=== PATIENT | female | born 1940 | race Caucasian/White ===

== ENCOUNTER 2021-02-18 15:11 | Outpatient (CLI) | payer MEDICARE, SELFPAY ==
--- NOTE | ~2021-02-18 | MM_ITS ---
EXAMINATION: MM screening [facility] BI w chelly HISTORY: Screening mammogram TECHNIQUE: Craniocaudal and mediolateral oblique 3-D tomosynthesis images were obtained and synthetic 2-D images were generated. CAD analysis was submitted and interpreted. COMPARISON: 08/25/2019, 07/19/2017, 07/11/2015 BREAST PARENCHYMAL COMPOSITION: The breasts are heterogeneously dense, which may obscure small masses . FINDINGS: Scattered benign-appearing calcifications are present. There is no evidence of suspicious m ass, calcification, or architectural distortion to suggest malignancy in either breast. There has bee n no suspicious interval change. IMPRESSION: 1. No mammographic evidence of malignancy. 2. Recommend routine screening mammography in one year. BI-RADS Category 2: Benign finding(s). Reviewed, dictated and finalized at location A.
== END 2021-02-18 15:12 | disposition home or self-care (01) ==
PROVIDERS: PCP Nurse Practitioner Adult Health; Visit Provider Nurse Practitioner Adult Health
DX: Z12.31 Encounter for screening mammogram for malignant neoplasm of breast (principal)
CPT/HCPCS: 77063; 77067

== ENCOUNTER 2022-03-27 08:46 | Outpatient (CLI) | payer MEDICARE, SELFPAY ==
--- NOTE | ~2022-03-27 | DEXA_ITS ---
Bone Density Report Name: JN ROSS Age: 81 Sex: Female Ethnicity: White Date of : 1940 Indication: postmenopausal; screening for osteoporosis; height loss; Referring Provider: SHALINI, CARL Study: Bone densitometry was performed. Exam Date: March 27, 2022 Accession number: [id number] Bone Density: Region BMD T-score Z-score Classification AP Spine(L1, L4) 1.385 3.2 5.9 Normal Femoral Neck (Left) 0.931 0.7 3.1 Normal Total Hip (Left) 1.017 0.6 2.7 Normal Femoral Neck (Right) 0.850 0.0 2.3 Normal Total Hip (Right) 0.964 0.2 2.3 Normal Total Hip Mean 0.991 0.4 2.5 Normal World Health Organization criteria for BMD impression classify patients as: Normal (T-score at or above -1.0), Osteopenia (T-score between -1.0 and -2.5), or Osteoporosis (T-score at or below -2.5). 10-year Fracture Risk: FRAX not reported because: All T-scores for Spine Total, Hip Total, Femoral Neck at or above -1.0 Previous Exams: Region Exam Age BMD T-score BMD Change BMD Change Date g/cm2 vs Baseline vs Previous AP Spine (L1,L4) 03/27/2022 81 1.385 3.2 0.013 (0.9%) 0.007 (0.5%) 08/25/2019 79 1.378 3.1 0.005 (0.4%) 0.005 (0.4%) 07/19/2017 77 1.373 3.1 Total Hip(Left) 03/27/2022 81 1.017 0.6 -0.021 (-2.0%) -0.095 (-8.6%) 08/25/2019 79 1.112 1.4 0.075 (7.2%)* 0.075 (7.2%)* 07/19/2017 77 1.038 0.8 Total Hip(Right) 03/27/2022 81 0.964 0.2 -0.081 (-7.7%) -0.039 (-3.9%) 08/25/2019 79 1.003 0.5 -0.042 (-4.0%) -0.042 (-4.0%) 07/19/2017 77 1.045 0.8 *Denotes significance at 95% confidence level, LSC for AP Spine = 0.022 g/cm2, LSC for Total Hip = 0.027 g/cm2 Clinical Information Provided by Patient: Has used the following medications: Vitamin D Patient maximum height was 63.5 Menopause Age: 46 No regular weight bearing exercise Drinks caffeinated beverages Onset of menses at age 14 Number of children 4 Impression: The patient has normal bone mass. The BMD for the Total Hip(Left) decreased, changing by -8.6% since the last DXA exam. The BMD for the Total Hip(Right) decreased, changing by -3.9% since the last DXA exam. Discussion: LOW RISK OF FRACTURE; BONE DENSITY IS WELL ABOVE THE MINIMUM DESIRABLE LEVEL AND ABOVE AVERAGE FOR AGE AND SEX AT ALL SKELETAL SITES TESTED. This person's bone density is above expected limits for age and sex. This is rarely clinically significant, b
--- NOTE | ~2022-03-27 | MM_ITS ---
EXAMINATION: MM screening [facility] BI w chelly HISTORY: Screening TECHNIQUE: Craniocaudal and mediolateral oblique 3-D tomosynthesis images were obtained and synthetic 2-D images were generated. CAD analysis was submitted and interpreted. COMPARISON: Comparison to multiple prior studies sequentially, with oldest reviewed study dated 06/08. BREAST PARENCHYMAL COMPOSITION: The breasts are heterogeneously dense, which may obscure small masses . FINDINGS: There are benign bilateral breast calcifications. There is no evidence of suspicious mass, calcification, or architectural distortion to suggest malignancy in either breast. There has been no suspicious interval change. IMPRESSION: 1. No mammographic evidence of malignancy. 2. Recommend routine screening mammography in one year. BI-RADS Category 2: Benign finding(s). Reviewed, dictated and finalized at location A.
== END 2022-03-27 08:47 | disposition home or self-care (01) ==
LOC: ANHIMG 08:47
PROVIDERS: PCP Nurse Practitioner Adult Health; Visit Provider Nurse Practitioner Adult Health
DX: Z12.31 Encounter for screening mammogram for malignant neoplasm of breast (principal); Z78.0 Asymptomatic menopausal state
CPT/HCPCS: 77063; 77067; 77080

== ENCOUNTER 2023-05-28 13:10 | Outpatient (CLI) | payer MEDICARE, SELFPAY ==
--- NOTE | ~2023-05-28 | MM_ITS ---
EXAMINATION: MM screening john BI w chelly HISTORY: Screening TECHNIQUE: Craniocaudal and mediolateral oblique 3-D tomosynthesis images were obtained and synthetic 2-D images were generated. CAD analysis was submitted and interpreted. COMPARISON: Comparison to multiple prior studies sequentially, with oldest reviewed study dated 01/2015. BREAST PARENCHYMAL COMPOSITION: The breasts are heterogeneously dense, which may obscure small masses FINDINGS: There is no evidence of suspicious mass, calcification, or architectural distortion to sugg est malignancy in either breast. There has been no suspicious interval change. IMPRESSION: 1. No mammographic evidence of malignancy. 2. Recommend routine screening mammography in one year. BI-RADS Category 1: Negative Reviewed, dictated and finalized at location A.
== END 2023-05-28 13:11 | disposition home or self-care (01) ==
LOC: ANHIMG 13:13
PROVIDERS: PCP Nurse Practitioner Family; Visit Provider Nurse Practitioner Family
DX: Z12.31 Encounter for screening mammogram for malignant neoplasm of breast (principal)
CPT/HCPCS: 77063; 77067

== ENCOUNTER 2024-05-09 13:19 | Outpatient (CLI) | payer MEDICARE, SELFPAY ==
--- NOTE | ~2024-05-09 | DEXA_ITS ---
Bone Density Report Name: JN ROSS Age: 84 Sex: Female Ethnicity: White Date of : 1940 Indication: postmenopausal; screening for osteoporosis; height loss; Referring Provider: HIEN, COLIN Rae Study: Bone densitometry was performed. Exam Date: May 09, 2024 Accession number: [id number] Bone Density: Region BMD T-score Z-score Classification AP Spine(L1, L4) 1.352 2.9 5.6 Normal Femoral Neck (Left) 0.944 0.9 3.3 Normal Total Hip (Left) 1.046 0.9 3.1 Normal Femoral Neck (Right) 0.848 0.0 2.4 Normal Total Hip (Right) 0.932 -0.1 2.1 Normal Total Hip Mean 0.989 0.4 2.6 Normal World Health Organization criteria for BMD impression classify patients as: Normal (T-score at or above -1.0), Osteopenia (T-score between -1.0 and -2.5), or Osteoporosis (T-score at or below -2.5). 10-year Fracture Risk: FRAX not reported because: All T-scores for Spine Total, Hip Total, Femoral Neck at or above -1.0 Previous Exams: Region Exam Age BMD T-score BMD Change BMD Change Date g/cm2 vs Baseline vs Previous AP Spine (L1,L4) 05/09/2024 84 1.352 2.9 -0.021 (-1.5%) -0.034 (-2.4%) 03/27/2022 81 1.385 3.2 0.013 (0.9%) 0.007 (0.5%) 08/25/2019 79 1.378 3.1 0.005 (0.4%) 0.005 (0.4%) 07/19/2017 77 1.373 3.1 Total Hip(Left) 05/09/2024 84 1.046 0.9 0.009 (0.8%) 0.029 (2.9%)* 03/27/2022 81 1.017 0.6 -0.021 (-2.0%) -0.095 (-8.6%) 08/25/2019 79 1.112 1.4 0.075 (7.2%)* 0.075 (7.2%)* 07/19/2017 77 1.038 0.8 Total Hip(Right) 05/09/2024 84 0.932 -0.1 -0.113 (-10.8% -0.032 (-3.3%) 03/27/2022 81 0.964 0.2 -0.081 (-7.7%) -0.039 (-3.9%) 08/25/2019 79 1.003 0.5 -0.042 (-4.0%) -0.042 (-4.0%) 07/19/2017 77 1.045 0.8 *Denotes significance at 95% confidence level, LSC for AP Spine = 0.022 g/cm2, LSC for Total Hip = 0.027 g/cm2 Clinical Information Provided by Patient: Has used the following medications: Vitamin D Patient maximum height was 63.5 Menopause Age: 46 Onset of menses at age 14 Number of children 4 Impression: The patient has normal bone mass. The BMD for the AP Spine (L1,L4) decreased, changing by -2.4% since the last DXA exam. The BMD for the Total Hip(Right) decreased, changing by -3.3% since the last DXA exam. Discussion: LOW RISK OF FRACTURE; BONE DENSITY IS WELL ABOVE THE MINIMUM DESIRABLE LEVEL AND ABOVE AVERAGE FOR AGE AND SEX AT AL
== END 2024-05-09 13:20 | disposition home or self-care (01) ==
PROVIDERS: PCP Family Medicine; Visit Provider Family Medicine
DX: Z78.0 Asymptomatic menopausal state (principal); Z13.820 Encounter for screening for osteoporosis
CPT/HCPCS: 77080

== ENCOUNTER 2024-07-12 14:50 | Outpatient (CLI) | payer MEDICARE, SELFPAY ==
--- NOTE | ~2024-07-12 | MM_ITS ---
EXAMINATION: MM screening john BI w chelly HISTORY: Screening TECHNIQUE: Craniocaudal and mediolateral oblique 3-D tomosynthesis images were obtained and synthetic 2-D images were generated. CAD analysis was submitted and interpreted. COMPARISON: Comparison to multiple prior studies sequentially, with oldest reviewed study dated 01/2025. BREAST PARENCHYMAL COMPOSITION: Dense: The breasts are heterogeneously dense, which may obscure small masses FINDINGS: There is no evidence of suspicious mass, calcification, or architectural distortion to sugg est malignancy in either breast. There has been no suspicious interval change. IMPRESSION: 1. No mammographic evidence of malignancy. 2. Recommend routine screening mammography in one year. BI-RADS Category 1: Negative Reviewed, dictated and finalized at location B. DLE COOK
== END 2024-07-12 14:51 | disposition home or self-care (01) ==
LOC: ANHIMG 14:52
PROVIDERS: PCP Family Medicine; Visit Provider Family Medicine
DX: Z12.31 Encounter for screening mammogram for malignant neoplasm of breast (principal)
CPT/HCPCS: 77063; 77067

== ENCOUNTER 2025-07-13 09:58 | Outpatient (CLI) | payer MEDICARE, SELFPAY ==
--- NOTE | ~2025-07-13 | MM_ITS ---
EXAMINATION: MM screening john BI w chelly HISTORY: Screening TECHNIQUE: Craniocaudal and mediolateral oblique 3-D tomosynthesis images were obtained and synthetic 2-D images were generated. CAD analysis was submitted and interpreted. COMPARISON: Comparison to multiple prior studies sequentially, with oldest reviewed study dated 07/19/2017. BREAST PARENCHYMAL COMPOSITION: Dense: The breasts are heterogeneously dense, which may obscure small masses FINDINGS: There is no evidence of suspicious mass, calcification, or architectural distortion to suggest malignancy in either breast. There has been no suspicious interval change. IMPRESSION: 1. No mammographic evidence of malignancy. 2. Recommend routine screening mammography in one year. BI-RADS Category 1: Negative Reviewed, dictated and finalized at location O. TICAL NURSE
--- OUTSIDE RECORDS SUMMARY | 2025-07-13 10:45 | XMS_ITS | Clinical Summary ---
Author Organization [facility] Address [address] [place] [address] Care Team Providers Care Floating Derrick Operator Name Role Phone Terell Marsh MD Unavailable Source Comments [facility],non[facility] Affiliates and Associated Physician Practices is amultiple site organization consisting of ambulatory clinics and hospital sitesin [place], [place], [place] and [place]. This disclosure is being madepursuant to the Care Everywhere program and may not contain all information available regarding this patient. Last updated 18.[facility] MaxCDN Allergies Active Allergy Reactions Criticality Noted Date Comments Alendronic Acid Unknown Cortisone 10/18/2012 HTN FOLLOWING CORTISONE INJECTION Alendronate Sodium Swelling 10/18/2012 Medications * Be aware that medications may not be up to date on this document. Alwaysverify current medications with the patient. triamterene-hyd rochlorothiazid e (MAXZIDE-25) 37.5-25 MG tablet Take 1 Tab by mouth 2 times daily Active lisinopril (PRINIVIL; ZESTRIL) 40 MG tablet Take 40 mg by mouth once daily. Active DHA-EPA-Vit Z6-H58-Xvqzp Acid (CARDIOVID PLUS) CAPS Take by mouth once daily 2 in am/ 1 in pm Active simvastatin (ZOCOR) 40 MG tablet Take 40 mg by mouth at bedtime 6 Active Vitamin D3 (CHOLECALCIFERO L) 2000 UNITS capsule Take 2,000 Units by mouth once daily Active cloNIDine (CATAPRES) 0.2 MG tablet Take 0.2 mg by mouth 2 times daily Active [place]-3 Fatty Acids (FISH OIL) 645 MG Take by mouth 2 times daily Active amoxicillin (AMOXIL) 500 MG tablet Take 4 tabs one hour before any dental treatment 4 tablet 4 0 Active Active Problems Problem Noted Date Diagnosed Date Primary osteoarthritis of right knee 07/26/2018 S/P cervical discectomy 09/30/2016 Status post total left knee replacement 06/23/20 16 Post-operative nausea and vomiting 11/07/2012 Immunizations Immunization Administration Dates Next Due INFLUENZA VACCINE, QUADR. (F LUZONE; FLULAVAL; FLUARIX; AFLURIA QUADRIVALENT; 6MO+), 0.5 ML (IIV4) 05/14/2016 Family History Medical History Relation Name Comments Alzheimer's Disease Father Heart Failure Mother Relation Name Status Comments Father Mother Social History Tobacco Use Types Packs/Day Years Used Date Smoking Tobacco: Never Smokeless Tobacco: Never Alcohol Use Standard Drinks/Week Comments Yes 0 (1 standard drink = 0.6 oz pur e alcohol) RARELY Comments No Sex and Gender Information Value Date Recorded Sex Assigned at Not on file Legal Sex Female 10:48 AM SECURITY GUARD DISPATCHER Gender Identity Not on file Sexual Orientation Not on file Occupation Industry Job Start Date Job End Date RETIRED Not on file Not on file Not on file Last Filed Vital Signs Vital Sign Reading Time Taken Comments Blood Pressure 156/46 11/04/2018 9:13 AM SECURITY GUARD DISPATCHER Pulse 61 11/04/2018 9:13 AM SECURITY GUARD DISPATCHER Temperature 36.3 C (97.3 F) 11/04/2018 9:09 AM SECURITY GUARD DISPATCHER Respiratory Rate 18 11/04/2018 9:09 AM SECURITY GUARD DISPATCHER Oxygen Saturation 94% 11/04/2018 9:13 AM SECURITY GUARD DISPATCHER Inhaled Oxygen Concentration 21% 05/13/2016 4 :36 PM CDT Weight 97.5 kg (215 lb) 12/13/2018 11:25 AM CDT Height 160 cm (5' 3) 12/13/2018 11:25 AM CDT Body Mass Index 38.09 12/13/2018 11:25 AM CDT Plan of Treatment Upcoming Encounters Date Type Department Care Team (Late st Contact Info) Description 04/08/2026 1:30 PM CDT Office Visit [facility] - Otolaryngology [address] [place] [address] Kelley Ware, RIDING COACH-3D MODELER [address] [place] [address] 04/08/2026 2:00 PM CDT Testing Visit [facility] - Otolaryngology [address] [place] [address] Barbara Ambrocio, [facility] [address] [place] [address] Health Maintenance Due Date Last Done Comments BONE DENSITY TESTING 1940 MEDICARE AWV 12 MONTHS 1940 DTAP/TDAP/TD VACCINES (1 - Tdap) 1960 PNEUMOCOCCAL VACCINE 50+ (1 of 1 - PCV) 1991 ZOSTER VACCINE (1 of 2) 1991 Respiratory Syncytial Virus (RSV) Vaccine Pt: or over 60 yrs (1 - 1-dose 75+ series) 2016 DEPRESSION SCREENING 09/06/2024 COVID-19 VACCINE (1 - 2023-2 5 season) 2025 INFLUENZA VACCINE (#1) 2025 05/14/2016 HEPATITIS B VACCINE Aged Out No longe r eligible based on patient's age to complete this topic HIB VACCINE Aged Out No longer eligi ble based on patient's age to complete this topic HPV VACCINE Aged Out No longer eligi ble based on patient's age to complete this topic MENINGOCOCCAL (Group B) VACC INE SHARED DECISION-MAKING Aged Out No longer eligibl e based on patient's age to complete this topic MENINGOCOCCAL GROUPS A/C/Y/W VACCINE Aged Out No longer eligible b ased on patient's age to complete this topic Medical Devices Implanted Type Area Insurance Examining Clerk Device Identifier Shelf Expiration Date Model / Serial / Lot Avinash Bone [place] Hv Implanted:Qty: 1 on 05/13/2016 by Terell Marsh MD at [facility] Left: Knee [employer] 08/05/2017 [id number] / / [id number] Butn Pat Arcom Wire Polyeth Xsm 28 X 8 Implanted:Qty: 1 on 05/13/2016 by Terell Marsh MD at [facility] Left: Knee [employer] 03/18/2021 [id number] / / [id number] Tibial I Beam Fix Bar 71mm Implanted:Qty: 1 on 05/13/2016 by Terell Marsh MD at [facility] Left: Knee [employer] 01/08/2026 [id number] / / [id number] Ins Kn Vangurd Fem Cocr L-Intlok 65.0mm Implanted:Qty: 1 on 05/13/2016 by Terell Marsh MD at [facility] Left: Knee [employer] 03/09/2026 [id number] / / [id number] Brdg Tib Ale Stbl 12mm X 71mm Implanted:Qty: 1 on 05/13/2016 by Terell Marsh MD at [facility] Left: Knee [employer] 02/27/2021 [id number] / / [id number] 14 Mm Fixed Screws Implanted:Qty: 8 on 09/30/2016 by Malik Nichols MD at [facility] [employer] Inc [id number] / / Description:from sterile imp lant tray Graft Bone Alloquent Carlyle Cnc Algrf - [id number] Implanted:Qty: 1 on 09/30/2016 by Malik Nichols MD at [facility] 02/18/2019 30-5007 / [id number] / [id number] Graft Bone Alloquent-S Carlyle Algrf Strct - [id number] Implanted:Qty: 1 on 09/30/2016 by Malik Nichols MD at [facility] 02/19/2019-500 / [id number] / [id number] Graft Bone Alloquent-S Carlyle Algrf Strct - [id number] Implanted:Qty: 1 on 09/30/2016 by Malik Nichols MD at [facility] 02/19/2019 30-5008 / [id number] / [id number] 51 Mm Luxe Acp Plate Implanted:Qty: 1 on 09/30/2016 by Malik Nichols MD at [facility] Spine Cervical [employer] Inc [id number] / / Description:from sterile imp lant tray Cmnt Bone Cblt 40gm Hvisc Strl Implanted:Qty: 1 on 11/02/2018 by Terell Marsh MD at [facility] Right: Knee [employer] 01/20/2020 [id number] 0 / / [id number] Cmpnt Ptlr 28mm 1 Pg Wire Ascnt Arcm Kn Implanted:Qty: 1 on 11/02/2018 by Terell Marsh MD at [facility] Right: Knee Sean [employer] 09/27/2022 [id number] / / [id number] Cmpnt Fem Kn Rt Cr Cmnt Prm Vngrd Intlk Implanted:Qty: 1 on 11/02/2018 by Terell Marsh MD at [facility] Right: Knee [employer] 04/05/2028 [id number] / / [id number] Tray Tib 75mm Kn Cocr I Beam Implanted:Qty: 1 on 11/02/2018 by Terell Marsh MD at [facility] Right: Knee [employer] 08/17/2028 [id number] / / [id number] Brng [id number] Vngrd Arcm Kn Ant Stab Implanted:Qty: 1 on 11/02/2018 by Terell Marsh MD at [facility] Right: Knee [employer] 09/22/2023 [id number] / / [id number] Additional Health Concerns Infection Onset Date Last Indicated MRSA Hx 11/03/2018 11/03/2018 Insurance MEDICARE MEDICARE SUPPLEMENT PAYOR GENERIC AETNA MEDICARE Advance Directives * Full Code (Latest Code Status on File) Date Activated Date Inactivated Comments 11/02/2018 3:54 PM 11/04/2018 2:11 PM * Full Code Date Activated Date Inactivated Comments 09/30/2016 5:35 PM 10/01/2016 12:03 PM * Full Code Date Activated Date Inactivated Comments 05/13/2016 12:44 PM 05/16/2016 1:59 PM * FULL RESUSCITATION Date Activated Date Inactivated Comments 11/07/2012 3:08 PM 11/08/2012 2:17 PM Care Teams Floating Derrick Operator Relationship Specialty [place] [address] [place] [id number] Orthopedic Surgery 01/14/16
--- OUTSIDE RECORDS SUMMARY | 2025-07-13 10:45 | XMS_ITS | Patient Health Record ---
Author Organization [facility] Address [address] [place] [address] Support Name Relationship Address Phone Lizett Osullivan Guarantor Unknown [phone] Reason For Referral No Information Plan Of Treatment No Information Insurance Providers Payer Name Payer Address Payer Phone Subscriber Number Group Number Insured Name Patient Relationship to Insured Coverage Start Date Coverage End Date [place] [address] [address] [place] [address] [id number] Lizett Osullivan Self - patient is the insured 8 [place] [employer] [place] [address] - [place] [address] [id number] PLAN G Lizett Osullivan Self - patient is the insured 3
--- OUTSIDE RECORDS SUMMARY | 2025-07-13 10:45 | XMS_ITS | Encounter Summary ---
Author Organization [facility] Address [address] [place] [address] Care Team Providers Care Polymer Chemist Name Role Phone Terell Marsh MD Unavailable Encounter Details Date Type Department Care Team (Late st Contact Info) Description 03/23/2019 Lab Requisition [facility] [address] [place] [address] Mal[place] [address] Social History Tobacco Use Types Packs/Day Years Used Date Smoking Tobacco: Never Smokeless Tobacco: Never Alcohol Use Standard Drinks/Week Comments Yes 0 (1 standard drink = 0.6 oz pur e alcohol) RARELY Comments No Sex and Gender Information Value Date Recorded Sex Assigned at Not on file Legal Sex Female 10:48 AM IVF EMBRYOLOGIST Gender Identity Not on file Sexual Orientation Not on file Occupation Industry Job Start Date Job End Date RETIRED Not on file Not on file Not on file documented as of this encounter Functional Status * Is person deaf or have serious hearing difficulty? Answer Date of Assessment Author No 11/02/2018 5:45 PM Connor Segovia RN * Is person blind or have serious difficulty seeing? Answer Date of Assessment Author No 11/02/2018 5:45 PM Connor Segovia RN * Does person have serious difficulty walking/climbing stairs? Answer Date of Assessment Author No 11/02/2018 5:45 PM Connor Segovia RN * Does person have difficulty dressing/bathing? Answer Date of Assessment Author No 11/02/2018 5:45 PM Connor Segovia RN * Does person have difficulty doing errands alone? Answer Date of Assessment Author Yes 11/02/2018 5:45 PM Connor Segovia RN documented as of this encounter Mental Status * Does person have difficulty concentrating/remembering/making decisions? Answer Entry Date Author No 11/02/2018 5:45 PM Connor Segovia RN documented in this encounter Plan of Treatment Upcoming Encounters Date Type Department Care Team (Late st Contact Info) Description 04/08/2026 1:30 PM CDT Office Visit [facility] Physician [facility] - Otolaryngology [address] [place] [id number] Chaz Kelley Lydia, GLIDING PILOT [facility] [address] [address] 04/08/2026 2:00 PM CDT Testing Visit [facility] - Otolaryngology [address] [place] [address] Barbara Ambrocio Au[place] [address] [address] documented as of this encounter Procedures Procedure Name Priority Date/Time Associated Diagnosis Comments DERMATOPATHOLOGY Routine 03/22/2019 12:0 0 AM CDT documented in this encounter Results * DERMATOPATHOLOGY (03/22/2019 12:00 AM CDT) Case Report Dermatopathology Report Case: [id number] Authorizing Provider: Malik Mark MD Collected: 03/22/2019 12:00 AM Pathologist: Osvaldo Redman MD Received: 03/23/2019 11:40 AM Specimen: Skin, left proximal forearm at AC fossa laterally 9 4:33 PM CDT DERMATOPATHOLOGY LABORATORY Final Diagnosis Specimen A. 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 4:33 PM CDT DERMATOPATHOLOGY LABORATORY Gross Description Specimen A: Received is one formalin filled container labeled with the patient's name and designated left proximal forearm at AC fossa laterally. The specimen consists of a shave biopsy measuring [id number]. Jar 0. 4:33 PM CDT DERMATOPATHOLOGY LABORATORY Microscopic Description Specimen A. SKIN, left proximal forearm at AC fossa laterally: There is a proliferation of melanocytes distributed in an irregular pattern, singly and in nests, at all levels of the epidermis. MART-1/Melan-A highlights the pagetoid spread. This lesion approximates the margin of the specimen. 4:33 PM CDT DERMATOPATHOLOGY LABORATORY Disclaimer An external and internal positive and negative controls are appropriate for the histochemical, immunohistochemical and immunofluorescence stain(s) in this case (if any), except where stated explicitly. The performance characteristics of the stain(s) cited in this report were developed and its performance characteristic determined by the Dermatopathology Laboratory at [facility], directed by Dr. Ethel Redman. These tests need not be, and therefore are not, approved by the [place] Food and Drug Administration. The tests are used for clinical purposes. Billing Codes Specimen Charges Stain Charges 73825 1 72173 1 4:33 PM CDT DERMATOPATHOLOGY LABORATORY Embedded Images 4:33 PM CDT DERMATOPATHOLOGY LABORATORY Pathology/Cytolog y TISSUE SPECIMEN FROM SKIN / Unknown 03/22/2019 03/23/2019 11:40 AM CDT Malik Mark MD LAB - PATHOLOGY/CYTOLOGY ORD ERABLES Final Result DERMATOPATHOLOGY LABORATORY [facility] - Department of Dermatology [address] [place] [address], 5th Floor Lab [address] [phone] documented in this encounter Visit Diagnoses Not on filedocumented in this encounter Additional Health Concerns Infection Onset Date Last Indicated Resolved Time MRSA Hx 11/03/2018 11/03/2018 documented as of this encounter Care Teams Polymer Chemist Relationship Specialty [place] [address] [place] [address] Orthopedic Surgery 01/14/16 documented as of this encounter
--- OUTSIDE RECORDS SUMMARY | 2025-07-13 10:45 | XMS_ITS | Data Portability ---
Author Organization [facility] [employer], Main Office Address [address] [place] [address] Assessment Encounter Date Assessment Date Assessment LastModified by Organization Details LastModified Time 03/02/2023 03/02/2023 Cscope- 2013- no longer doing 2/2 age WWE- no longer doing 2/2 age Mammogram- 03/2022 DEXA- 03/2022- normal Call office if worse, ER if life-threatening illness RTC in 4 months She voices understanding of plan and agrees [email or web address] Not available 03/02/2023 12:02:58 06/29/2023 06/29/2023 Cscope- 2013- no longer doing 2/2 age WWE- no longer doing 2/2 age Mammogram- 05/2023 DEXA- 03/2022- normal Call office if worse, ER if life-threatening illness RTC in 4 months She voices understanding of plan and agrees [email or web address] Not available 06/29/2023 10:03:14 Plan of Treatment Reminders Order Date Submit Date Provider Last Modified By Organization Details Last Modified Time Details Appointments None recorded. Lab None recorded. Referral None recorded. Procedures None recorded. Surgeries None recorded. Imaging MAMMO, screening, bilateral 2022 023 [email or web address] [facility], [address], [place] [address], [place], [address], 14:25:50 Medication Orders neomycin 3.5 mg/g-polym yxin B 10,000 unit/g-dex ameth 0.1 % eye oint 2022 023 [facility] #[id number], [address], [place], [address], 3 10:03:24 neomycin 3.5 mg/g-polym yxin B 10,000 unit/g-dex ameth 0.1 % eye oint 2022 023 [facility] #[id number], [address], [place], [address], 3 12:11:36 Patient TargetsNo targets recorded. Patient InstructionsNo instructions recorded. Reason for Referral None Reported. Results Created Date Observation Date Name Description Value Unit Range Abnormal Flag Note LastModifiedBy Organization Detail LastModifiedTime 07/23/2007/23/2022 NT-KS O BNP ntbnp 95.7 pg/mL 0-450 Not Available [facility] (Lab) [address] [place], [address], 07/23/2022 13:42:10 07/23/20 22 07/23/2022 MICRO ALBUM N RNDM W/CRE AT RATIO ur creat 49.59 mg/dL REFER ENCE RANGE NOT ESTAB LISHE D FOR RANDO M URINE CREAT ININE Not Available [facility] (Lab) [address] [place], [address], 07/23/2022 13:36:21 07/23/20 22 07/23/2022 MICRO ALBUM N RNDM W/CRE AT RATIO microalbumin , urine 13.7 mg/L 0.0-16 .6 Not Available [facility] (Lab) [address] [place], [address], 07/23/2022 13:36:21 07/23/20 22 07/23/2022 MICRO ALBUM N RNDM W/CRE AT RATIO microalbumin /creatinine ratio 28 mcg/m g 0-29 THE AMERI CAN DIABE NIMO ASSOC IATIO N DEFIN ES ABNOR MALIT IES IN ALBUM IN EXCRE TION FOLLO WS: CATEG ORY RESUL T (MCG/ MG CREAT ININE ) CASSIE L <30 MICRO ALBUM INURI A 30-29 9 CLINI NATHALIA ALBUM INURI A > OR = 300 THE ADA RECOM MENDS THAT 2 OF 2 SPECI MENS COLLE CTED WITHI N A 3- TO 6-MON TH PERIO D BE ABNOR MAL BEFOR E CONSI JOELLE G A PATIE NT TO HAVE CROSS ED ONE OF THESE DIAGN OSTIC THRES HOLDS . REFER ENCE: DIABE NIMO CARE, VOL. 26: [id number] 96, 2002 Not Available [facility] (Lab) [address] [place], [address], 07/23/2022 13:36:21 07/23/20 22 07/23/2022 COMPR EHENS BLUE METAB OLIC PANEL anion gap 13.7 mmol/ L 14-22 low Not Available [facility] (Lab) [address] [place], [address], 07/23/2022 14:58:48 07/23/20 22 07/23/2022 COMPR EHENS BLUE METAB OLIC PANEL sodium 142 mmol/ L 137-14 5 Not Available [facility] (Lab) [address] [place], [address], 07/23/2022 14:58:48 07/23/20 22 07/23/2022 COMPR EHENS BLUE METAB OLIC PANEL potassium 4.7 mmol/ L 3.5-5. 1 Not Available [facility] (Lab) [address] [place], [address], 07/23/2022 14:58:48 07/23/20 22 07/23/2022 COMPR EHENS BLUE METAB OLIC PANEL chloride 105 mmol/ L 98-107 Not Available [facility] (Lab) [address] [place], [address], 07/23/2022 14:58:48 07/23/20 22 07/23/2022 COMPR EHENS BLUE METAB OLIC PANEL carbon dioxide 28 mmol/ L 22-30 Not Available [facility] (Lab) [address] [place], [address], 07/23/2022 14:58:48 07/23/20 22 07/23/2022 COMPR EHENS BLUE METAB OLIC PANEL glucose 98 mg/dL 70-99 Not Available [facility] (Lab) [address] [place], [address], 07/23/2022 14:58:48 07/23/20 22 07/23/2022 COMPR EHENS BLUE METAB OLIC PANEL BUN 33 mg/dL 8-19 high Not Available [facility] (Lab) [address] [place], [address], 07/23/2022 14:58:48 07/23/20 22 07/23/2022 COMPR EHENS BLUE METAB OLIC PANEL creatinine 1.32 mg/dL 0.66-1 .25 high Not Available [facility] (Lab) [address] [place], [address], 07/23/2022 14:58:48 07/23/20 22 07/23/2022 COMPR EHENS BLUE METAB OLIC PANEL aspartate aminotransfe rase 30 U/L 15-37 Not Available [facility] (Lab) [address] [place], [address], 07/23/2022 14:58:48 07/23/20 22 07/23/2022 COMPR EHENS BLUE METAB OLIC PANEL GFR 39 Refer ence Range : [place] ge GFR Healt hy Adult : >60 mL/mi n/1.7 3 m2 Chron ic Kidne y Disea se: 15-60 mL/mi n/1.7 3 m2 Kidne y Failu re: <15/m L/min /1.73 m2 www.n iddk. nih.g ov The MDRD study equat ion has not been valid ated in child javier <18 years of age; pregn ant women ; the elder ly >85 years of age; or in some racia l or ethni c subgr oups, such as Hispa nics. Outsi de the valid ated benny eters , estim ated GFR is less accur ate, requi ring clini nathalia judgm ent on a case- by-ca se basis . Clini nathalia inter preta tion for other races and ages must be made by the clini shayy. The MDRD study equat ion has not been valid ated for the evalu ation of serum creat inine relat ed to nutri alejandra l statu s or medic ation usage . For perso ns <18 years of age, a pedia tric GFR calcu lator is avail able on the [facility] websi te: https ://abdi w.kid meseret.o rg/pr ofess ional s/kdo qi/gf r_cal culat or Not Available [facility] (Lab) [address] [place], [address], 07/23/2022 14:58:48 07/23/20 22 07/23/2022 COMPR EHENS BLUE METAB OLIC PANEL alkaline phosphatase 71 U/L 38-126 Not Available [facility] (Lab) [address] [place], [address], 07/23/2022 14:58:48 07/23/20 22 07/23/2022 COMPR EHENS BLUE METAB OLIC PANEL alanine aminotransfe rase 23 U/L 0-35 Not Available [facility] (Lab) [address] [place], [address], 07/23/2022 14:58:48 07/23/20 22 07/23/2022 COMPR EHENS BLUE METAB OLIC PANEL bilirubin, total 1.20 mg/dL 0.20-1 .30 Not Available [facility] (Lab) [address] [place], [address], 07/23/2022 14:58:48 07/23/20 22 07/23/2022 COMPR EHENS BLUE METAB OLIC PANEL calcium 10.4 mg/dL 8.4-10 .2 high Not Available [facility] (Lab) [address] [place], [address], 07/23/2022 14:58:48 07/23/20 22 07/23/2022 COMPR EHENS BLUE METAB OLIC PANEL total protein 7.2 g/dL 6.3-8. 2 Not Available [facility] (Lab) [address] [place], [address], 07/23/2022 14:58:48 07/23/20 22 07/23/2022 COMPR EHENS BLUE METAB OLIC PANEL albumin 4.4 g/dL 3.0-4. 4 Not Available [facility] (Lab) [address] [place], [address], 07/23/2022 14:58:48 07/23/20 22 07/23/2022 COMPR EHENS BLUE METAB OLIC PANEL globulin 2.8 g/dL 2.6-4. 2 Not Available [facility] (Lab) [address] [place], [address], 07/23/2022 14:58:48 07/23/20 22 07/23/2022 COMPR EHENS BLUE METAB OLIC PANEL A/G ratio 1.6 ratio 1.0-2. 0 Not Available [facility] (Lab) [address] [place], [address], 07/23/2022 14:58:48 07/23/20 22 07/24/2022 VITAM IN D 25-HY DROXY [id number] 48.5 NG/mL 30-100 Vitam in D Statu s: Defic ient: <20 ng/mL Insuf ficie nt: 20-29 ng/mL Suffi cient : 30-10 0 ng/mL Not Available [facility] (Lab) [address] [place], [address], 07/24/2022 13:32:44 07/23/20 22 07/23/2022 LIPID PANEL cholesterol 182 mg/dL 140-19 9 [facility] PARRIS NSUS RECOM MENDA TION FOR KELVIN STERO L: ADULT CHILD LOW RISK: <200 <170 BORDE RLINE : <200- 239 ----- HIGH RISK: >240 >200 Not Available [facility] (Lab) [address] [place], [address], 07/23/2022 13:37:03 07/23/20 22 07/23/2022 LIPID PANEL triglyceride s 81 mg/dL 0-150 NIH PARRIS NSUS REPOR T RECOM MENDA TION FOR TRIGL YCERI JYOTSNA: ADULT CHILD LOW RISK: <150 ----- BODER LINE: 150-1 99 ----- HIGH RISK: >200 ----- Not Available [facility] (Lab) [address] [place], [address], 07/23/2022 13:37:03 07/23/20 22 07/23/2022 LIPID PANEL HDL cholesterol 57 mg/dL 40- Not Available [facility] (Lab) [address] [place], [address], 07/23/2022 13:37:03 07/23/20 22 07/23/2022 LIPID PANEL LDL cholesterol, calculated 109 mg/dL 0-130 NIH PARRIS NSUS REPOR T RECOM MENDA TIONS FOR LDL: ADULT CHILD LOW RISK <130 <110 (OPTI MAL LDL) <100 ----- BORDE RLINE : 130-1 59 ----- HIGH RISK: >160 >130 A TRIGL YCERI DE RESUL T >400 INVAL IDATE S THE CALCU LATIO N FOR LDL FRACT IONAT ION - THE LDL RESUL T WILL NOT BE REPOR GERDA. Not Available [facility] (Lab) [address] [place], [address], 07/23/2022 13:37:03 02/03/20 23 02/02/2023 CBC/C OMPLE TE BLD COUNT W/DIF F white blood cells 6.5 x10'3 /uL 4.2-10 .8 Not Available [facility] (Lab) [address] [place], [address], 02/02/2023 10:38:23 02/03/20 23 02/02/2023 CBC/C OMPLE TE BLD COUNT W/DIF F red blood cells 4.57 x10'6 /uL 3.80-5 .20 Not Available [facility] (Lab) [address] [place], [address], 02/02/2023 10:38:23 02/03/20 23 02/02/2023 CBC/C OMPLE TE BLD COUNT W/DIF F hemoglobin 14.1 g/dL 12.0-1 5.6 Not Available [facility] (Lab) [address] [place], [address], 02/02/2023 10:38:23 02/03/20 23 02/02/2023 CBC/C OMPLE TE BLD COUNT W/DIF F hematocrit 42.5 % 35.7-4 5.7 Not Available [facility] (Lab) [address] [place], [address], 02/02/2023 10:38:23 02/03/2002/02/2023 CBC/C OMPLE TE BLD COUNT W/DIF F mean red cell volume 93.0 fL 82.0-9 9.0 Not Available [facility] (Lab) [address] [place], [address], 02/02/2023 10:38:23 02/03/2002/02/2023 CBC/C OMPLE TE BLD COUNT W/DIF F mean red cell hemoglobin 30.9 pg 27.0-3 3.0 Not Available [facility] (Lab) [address] [place], [address], 02/02/2023 10:38:23 02/03/20 23 02/02/2023 CBC/C OMPLE TE BLD COUNT W/DIF F mean RBC HGB concentratio n 33.2 g/dL 31.0-3 6.0 Not Available [facility] (Lab) [address] [place], [address], 02/02/2023 10:38:23 02/03/20 23 02/02/2023 CBC/C OMPLE TE BLD COUNT W/DIF F red cell distribution width 11.9 % 11.8-1 5.5 Not Available [facility] (Lab) [address] [place], [address], 02/02/2023 10:38:23 02/03/20 23 02/02/2023 CBC/C OMPLE TE BLD COUNT W/DIF F platelets 256 x10'3 /uL 150-40 0 Not Available [facility] (Lab) [address] [place], [address], 02/02/2023 10:38:23 02/03/20 23 02/02/2023 CBC/C OMPLE TE BLD COUNT W/DIF F mean platelet volume 9.2 fL 9.0-12 .4 Not Available [facility] (Lab) [address] [place], [address], 02/02/2023 10:38:23 02/03/20 23 02/02/2023 CBC/C OMPLE TE BLD COUNT W/DIF F neutrophils 70.1 % 39.0-7 2.0 Not Available [facility] (Lab) [address] [place], [address], 02/02/2023 10:38:23 02/03/20 23 02/02/2023 CBC/C OMPLE TE BLD COUNT W/DIF F lymphocytes 18.2 % 16.0-4 7.0 Not Available [facility] (Lab) [address] [place], [address], 02/02/2023 10:38:23 02/03/20 23 02/02/2023 CBC/C OMPLE TE BLD COUNT W/DIF F monocytes 8.3 % 5.0-12 .0 Not Available [facility] (Lab) [address] [place], [address], 02/02/2023 10:38:23 02/03/20 23 02/02/2023 CBC/C OMPLE TE BLD COUNT W/DIF F eosinophils 2.3 % 1.0-7. 0 Not Available [facility] (Lab) [address] [place], [address], 02/02/2023 10:38:23 02/03/20 23 02/02/2023 CBC/C OMPLE TE BLD COUNT W/DIF F basophils 0.6 % 0.0-2. 0 Not Available [facility] (Lab) [address] [place], [address], 02/02/2023 10:38:23 02/03/20 23 02/02/2023 CBC/C OMPLE TE BLD COUNT W/DIF F immature granulocytes 0.5 % 0.00-0 .50 Not Available [facility] (Lab) [address] [place], [address], 02/02/2023 10:38:23 02/03/20 23 02/02/2023 CBC/C OMPLE TE BLD COUNT W/DIF F neutrophils, absolute count 4.56 x10'3 /uL 1.5-8. 0 Not Available [facility] (Lab) [address] [place], [address], 02/02/2023 10:38:23 02/03/20 23 02/02/2023 CBC/C OMPLE TE BLD COUNT W/DIF F lymphocytes, absolute count 1.18 x10'3 /uL 1.07-3 .43 Not Available [facility] (Lab) [address] [place], [address], 02/02/2023 10:38:23 02/03/20 23 02/02/2023 CBC/C OMPLE TE BLD COUNT W/DIF F monocytes, absolute count 0.54 x10'3 /uL 0.29-0 .99 Not Available [facility] (Lab) [address] [place], [address], 02/02/2023 10:38:23 02/03/20 23 02/02/2023 CBC/C OMPLE TE BLD COUNT W/DIF F eosinophils, absolute count 0.15 x10'3 /uL 0.02-0 .53 Not Available [facility] (Lab) [address] [place], [address], 02/02/2023 10:38:23 02/03/2002/02/2023 CBC/C OMPLE TE BLD COUNT W/DIF F basophils, absolute count 0.04 x10'3 /uL 0.01-0 .08 Not Available [facility] (Lab) [address] [place], [address], 02/02/2023 10:38:23 02/03/20 23 02/02/2023 CBC/C OMPLE TE BLD COUNT W/DIF F immature granulocytes ,absolute 0.03 x10'3 /uL 0.00-0 .05 Not Available [facility] (Lab) [address] [place], [address], 02/02/2023 10:38:23 02/03/20 23 02/02/2023 CBC/C OMPLE TE BLD COUNT W/DIF F nucleated red blood cells 0.0 % -0 Not Available [facility] (Lab) [address] [place], [address], 02/02/2023 10:38:23 02/03/2002/02/2023 CBC/C OMPLE TE BLD COUNT W/DIF F NRBC# 0.00 x10'3 /uL Not Available [facility] (Lab) [address] [place], [address], 02/02/2023 10:38:23 02/03/20 23 02/02/2023 URINA LYSIS COMPL ETE/I RIS W/RFX color YELLOW Not Available [facility] (Lab) [address] [place], [address], 02/02/2023 11:09:51 02/03/20 23 02/02/2023 URINA LYSIS COMPL ETE/I RIS W/RFX appear TURBID abnormal Not Available [facility] (Lab) [address] [place], [address], 02/02/2023 11:09:51 02/03/20 23 02/02/2023 URINA LYSIS COMPL ETE/I RIS W/RFX specific gravity 1.008 1.001- 1.030 Not Available [facility] (Lab) [address] [place], [address], 02/02/2023 11:09:51 02/03/20 23 02/02/2023 URINA LYSIS COMPL ETE/I RIS W/RFX pH 7.0 pH_un its 5.0-9. 0 Not Available [facility] (Lab) [address] [place], [address], 02/02/2023 11:09:51 02/03/20 23 02/02/2023 URINA LYSIS COMPL ETE/I RIS W/RFX leukocytes NEGATI VE lopez/u L negati ve- Not Available [facility] (Lab) [address] [place], [address], 02/02/2023 11:09:51 02/03/20 23 02/02/2023 URINA LYSIS COMPL ETE/I RIS W/RFX nitrite NEGATI VE negati ve- Not Available [facility] (Lab) [address] [place], [address], 02/02/2023 11:09:51 02/03/20 23 02/02/2023 URINA LYSIS COMPL ETE/I RIS W/RFX protein NEGATI VE mg/dL negati ve- Not Available [facility] (Lab) [address] [place], [address], 02/02/2023 11:09:51 02/03/20 23 02/02/2023 URINA LYSIS COMPL ETE/I RIS W/RFX glucose NORMAL mg/dL normal - Not Available [facility] (Lab) [address] [place], [address], 02/02/2023 11:09:51 02/03/20 23 02/02/2023 URINA LYSIS COMPL ETE/I RIS W/RFX ketones NEGATI VE mg/dL negati ve- Not Available [facility] (Lab) [address] [place], [address], 02/02/2023 11:09:51 02/03/20 23 02/02/2023 URINA LYSIS COMPL ETE/I RIS W/RFX urobilinogen NORMAL mg/dL normal - Not Available [facility] (Lab) [address] [place], [address], 02/02/2023 11:09:51 02/03/20 23 02/02/2023 URINA LYSIS COMPL ETE/I RIS W/RFX bilirubin NEGATI VE mg/dL negati ve- Not Available [facility] (Lab) [address] [place], [address], 02/02/2023 11:09:51 02/03/20 23 02/02/2023 URINA LYSIS COMPL ETE/I RIS W/RFX blood NEGATI VE mg/dL negati ve- Not Available [facility] (Lab) [address] [place], [address], 02/02/2023 11:09:51 02/03/20 23 02/02/2023 URINA LYSIS COMPL ETE/I RIS W/RFX white blood cells 0-8 /i??h pfi?? 0-8 Not Available [facility] (Lab) [address] [place], [address], 02/02/2023 11:09:51 02/03/20 23 02/02/2023 URINA LYSIS COMPL ETE/I RIS W/RFX red blood cells 0-4 /i??h pfi?? 0-4 Not Available [facility] (Lab) [address] [place], [address], 02/02/2023 11:09:51 02/03/20 23 02/02/2023 URINA LYSIS COMPL ETE/I RIS W/RFX bacteria NONE Not Available [facility] (Lab) [address] [facility] [place], [address], 02/02/2023 11:09:51 02/03/20 23 02/02/2023 URINA LYSIS COMPL ETE/I RIS W/RFX squamous epithelial FEW /i??l pfi?? abnormal Not Available [facility] (Lab) [address] [place], [address], 02/02/2023 11:09:51 02/03/20 23 02/02/2023 COMPR EHENS BLUE METAB OLIC PANEL sodium 135 mmol/ L 137-14 5 low Not Available [facility] (Lab) [address] [place], [address], 02/02/2023 11:10:09 02/03/20 23 02/02/2023 COMPR EHENS BLUE METAB OLIC PANEL potassium 5.3 mmol/ L 3.5-5. 1 high Not Available [facility] (Lab) [address] [place], [address], 02/02/2023 11:10:09 02/03/20 23 02/02/2023 COMPR EHENS BLUE METAB OLIC PANEL chloride 94 mmol/ L 98-107 low Not Available [facility] (Lab) [address] [place], [address], 02/02/2023 11:10:09 02/03/20 23 02/02/2023 COMPR EHENS BLUE METAB OLIC PANEL carbon dioxide 28 mmol/ L 22-30 Not Available [facility] (Lab) [address] [place], [address], 02/02/2023 11:10:09 02/03/20 23 02/02/2023 COMPR EHENS BLUE METAB OLIC PANEL anion gap 18.3 mmol/ L 14-22 Not Available [facility] (Lab) [address] [place], [address], 02/02/2023 11:10:09 02/03/20 23 02/02/2023 COMPR EHENS BLUE METAB OLIC PANEL glucose 95 mg/dL 70-99 Not Available [facility] (Lab) [address] [place], [address], 02/02/2023 11:10:09 02/03/20 23 02/02/2023 COMPR EHENS BLUE METAB OLIC PANEL BUN 28 mg/dL 8-19 high Not Available [facility] (Lab) [address] [place], [address], 02/02/2023 11:10:09 02/03/20 23 02/02/2023 COMPR EHENS BLUE METAB OLIC PANEL creatinine 1.33 mg/dL 0.66-1 .25 high Not Available [facility] (Lab) [address] [place], [address], 02/02/2023 11:10:09 02/03/20 23 02/02/2023 COMPR EHENS BLUE METAB OLIC PANEL GFR 38 Refer ence Range : [place] ge GFR Healt hy Adult : >60 mL/mi n/1.7 3 m2 Chron ic Kidne y Disea se: 15-60 mL/mi n/1.7 3 m2 Kidne y Failu re: <15/m L/min /1.73 m2 www.n iddk. nih.g ov The MDRD study equat ion has not been valid ated in child javier <18 years of age; pregn ant women ; the elder ly >85 years of age; or in some racia l or ethni c subgr oups, such as Hisbabatunde nics. Outsi de the valid ated benny eters , estim ated GFR is less accur ate, requi ring clini nathalia judgm ent on a case- by-ca se basis . Clini nathalia inter preta tion for other races and ages must be made by the clini shayy. The MDRD study equat ion has not been valid ated for the evalu ation of serum creat inine relat ed to nutri alejandra l statu s or medic ation usage . For perso ns <18 years of age, a pedia tric GFR calcu lator is avail able on the [facility] websi te: https ://abdi bartholomew.mike carl.o rg/pr ofess ional s/kdo qi/gf r_cal culat or Not Available [facility] (Lab) [address] [place], [address], 02/02/2023 11:10:09 02/03/20 23 02/02/2023 COMPR EHENS BLUE METAB OLIC PANEL alkaline phosphatase 50 U/L 38-126 Not Available [facility] (Lab) [address] [place], [address], 02/02/2023 11:10:09 02/03/20 23 02/02/2023 COMPR EHENS BLUE METAB OLIC PANEL alanine aminotransfe rase 23 U/L 0-35 Not Available [facility] (Lab) [address] [place], [address], 02/02/2023 11:10:09 02/03/20 23 02/02/2023 COMPR EHENS BLUE METAB OLIC PANEL aspartate aminotransfe rase 29 U/L 15-37 Not Available [facility] (Lab) [address] [place], [address], 02/02/2023 11:10:09 02/03/20 23 02/02/2023 COMPR EHENS BLUE METAB OLIC PANEL bilirubin, total 1.30 mg/dL 0.20-1 .30 Not Available [facility] (Lab) [address] [place], [address], 02/02/2023 11:10:09 02/03/20 23 02/02/2023 COMPR EHENS BLUE METAB OLIC PANEL calcium 10.1 mg/dL 8.4-10 .2 Not Available [facility] (Lab) [address] [place], [address], 02/02/2023 11:10:09 02/03/2002/02/2023 COMPR EHENS BLUE METAB OLIC PANEL total protein 7.1 g/dL 6.3-8. 2 Not Available [facility] (Lab) [address] [place], [address], 02/02/2023 11:10:09 02/03/20 23 02/02/2023 COMPR EHENS BLUE METAB OLIC PANEL albumin 4.1 g/dL 3.0-4. 4 Not Available [facility] (Lab) [address] [place], [address], 02/02/2023 11:10:09 02/03/20 23 02/02/2023 COMPR EHENS BLUE METAB OLIC PANEL globulin 3.0 g/dL 2.6-4. 2 Not Available [facility] (Lab) [address] [place], [address], 02/02/2023 11:10:09 02/03/20 23 02/02/2023 COMPR EHENS BLUE METAB OLIC PANEL A/G ratio 1.4 ratio 1.0-2. 0 Not Available [facility] (Lab) [address] [place], [address], 02/02/2023 11:10:09 02/03/20 23 02/02/2023 LIPID PANEL cholesterol 151 mg/dL 140-19 9 [facility] PARRIS NSUS RECOM MENDA TION FOR KELVIN STERO L: ADULT CHILD LOW RISK: <200 <170 BORDE RLINE : <200- 239 ----- HIGH RISK: >240 >200 Not Available [facility] (Lab) [address] [place], [address], 02/02/2023 11:10:18 02/03/20 23 02/02/2023 LIPID PANEL triglyceride s 88 mg/dL 0-150 NIH PARRIS NSUS REPOR T RECOM MENDA TION FOR TRIGL YCERI JYOTSNA: ADULT CHILD LOW RISK: <150 ----- BODER LINE: 150-1 99 ----- HIGH RISK: >200 ----- Not Available [facility] (Lab) [address] [place], [address], 02/02/2023 11:10:18 02/03/2002/02/2023 LIPID PANEL HDL cholesterol 49 mg/dL 40- Not Available [facility] (Lab) [address] [place], [address], 02/02/2023 11:10:18 02/03/20 23 02/02/2023 LIPID PANEL LDL cholesterol, calculated 84 mg/dL 0-130 [facility] REPOR T RECOM MENDA TIONS FOR LDL: ADULT CHILD LOW RISK <130 <110 (OPTI MAL LDL) <100 ----- BORDE RLINE : 130-1 59 ----- HIGH RISK: >160 >130 A TRIGL YCERI DE RESUL T >400 INVAL IDATE S THE CALCU LATIO N FOR LDL FRACT IONAT ION - THE LDL RESUL T WILL NOT BE REPOR GERDA. Not Available [facility] (Lab) [address] [place], [address], 02/02/2023 11:10:18 02/03/20 23 02/02/2023 VITAM IN D 25-HY DROXY [id number] 62.6 NG/mL 30-100 Vitam in D Statu s: Defic ient: <20 ng/mL Insuf ficie nt: 20-29 ng/mL Suffi cient : 30-10 0 ng/mL Not Available [facility] (Lab) [address] [place], [address], 02/02/2023 11:13:56 02/03/20 23 02/02/2023 T4 FREE free T4 1.43 NG/dL 0.78-2 .19 Not Available [facility] (Lab) [address] [place], [address], 02/02/2023 11:15:16 02/03/20 23 02/02/2023 TSH thyroid-stim ulating hormone 3.130 uIU/m L 0.465- 4.680 Not Available [facility] (Lab) [address] [place], [address], 02/02/2023 11:36:15 02/10/20 23 02/09/2023 RENAL FUNCT ION PANEL sodium 137 mmol/ L 137-14 5 Not Available [facility] (Lab) [address] [place], [address], 02/09/2023 11:56:32 02/10/20 23 02/09/2023 RENAL FUNCT ION PANEL potassium 5.1 mmol/ L 3.5-5. 1 Not Available [facility] (Lab) [address] [place], [address], 02/09/2023 11:56:32 02/10/20 23 02/09/2023 RENAL FUNCT ION PANEL chloride 97 mmol/ L 98-107 low Not Available [facility] (Lab) [address] [place], [address], 02/09/2023 11:56:32 02/10/20 23 02/09/2023 RENAL FUNCT ION PANEL carbon dioxide 30 mmol/ L 22-30 Not Available [facility] (Lab) [address] [place], [address], 02/09/2023 11:56:32 02/10/20 23 02/09/2023 RENAL FUNCT ION PANEL anion gap 15.1 mmol/ L 14-22 Not Available [facility] (Lab) [address] [place], [address], 02/09/2023 11:56:32 02/10/20 23 02/09/2023 RENAL FUNCT ION PANEL glucose 87 mg/dL 70-99 Not Available [facility] (Lab) [address] [place], [address], 02/09/2023 11:56:32 02/10/20 23 02/09/2023 RENAL FUNCT ION PANEL BUN 28 mg/dL 8-19 high Not Available [facility] (Lab) [address] [place], [address], 02/09/2023 11:56:32 02/10/20 23 02/09/2023 RENAL FUNCT ION PANEL creatinine 1.22 mg/dL 0.66-1 .25 Not Available [facility] (Lab) [address] [place], [address], 02/09/2023 11:56:32 02/10/20 23 02/09/2023 RENAL FUNCT ION PANEL GFR 42 Refer ence Range : [place] ge GFR Healt hy Adult : >60 mL/mi n/1.7 3 m2 Chron ic Kidne y Disea se: 15-60 mL/mi n/1.7 3 m2 Kidne y Failu re: <15/m L/min /1.73 m2 www.n iddk. nih.g ov The MDRD study equat ion has not been valid ated in child javier <18 years of age; pregn ant women ; the elder ly >85 years of age; or in some racia l or ethni c subgr oups, such as Hispa nics. Outsi de the valid ated benny eters , estim ated GFR is less accur ate, requi ring clini nathalia judgm ent on a case- by-ca se basis . Clini nathalia inter preta tion for other races and ages must be made by the clini shayy. The MDRD study equat ion has not been valid ated for the evalu ation of serum creat inine relat ed to nutri alejandra l statu s or medic ation usage . For perso ns <18 years of age, a pedia tric GFR calcu lator is avail able on the [facility] websi te: https ://abdi w.kid meseret.o rg/pr ofess ional s/kdo qi/gf r_cal culat or Not Available [facility] (Lab) [address] [place], [address], 02/09/2023 11:56:32 02/10/20 23 02/09/2023 RENAL FUNCT ION PANEL calcium 9.9 mg/dL 8.4-10 .2 Not Available [facility] (Lab) [address] [place], [address], 02/09/2023 11:56:32 02/10/20 23 02/09/2023 RENAL FUNCT ION PANEL phosphorus 4.1 mg/dL 2.5-4. 5 Not Available [facility] (Lab) [address] [place], [address], 02/09/2023 11:56:32 02/10/20 23 02/09/2023 RENAL FUNCT ION PANEL albumin 4.0 g/dL 3.0-4. 4 Not Available [facility] (Lab) [address] [place], [address], 02/09/2023 11:56:32 08/06/20 22 07/07/2022 trans -thor acic echoc ardio gram (TTE) (PROC ) No observ ation record ed. [id number] [facility] [address], [place], [address], 11/04/2022 08:15:26 10/06/19 23 03/27/2022 bone densi ty No observ ation record ed. [id number] [facility] [address], [place], [address], 11/04/2022 08:15:26 05/29/20 23 05/28/2023 MAMMO , bala motley No observ ation record ed. [email or web address] [facility] [address], [place], [address], 05/31/2023 15:53:12 Result Notes None recorded. Problems Name Problem SNOMED Code Status Onset Date Resolution Date Notes Provider Name and Address Organization Details Recorded Time Numbness and tingling sensation of skin 11855522571 2 Completed Not Available [facility] 3 08:09:44 Vitamin D deficienc y 17805034 Active Not Available [facility] 3 08:09:44 Osteoarth ritis 270593246 Active Not Available [facility] 3 08:09:44 Hematoche ziggy 801706536 Completed Not Available [facility] 3 08:09:44 Cough 56509456 Completed Not Available [facility] 3 08:09:44 Hyperlipi demia 37869321 Active Not Available [facility] 3 08:09:44 Essential hypertens ion 09199337 Active Not Available [facility] 3 08:09:45 Polyp of colon 80277363 Active Not Available [facility] 3 08:09:45 Decreased renal function 77621386 Active Not Available [facility] 3 08:09:45 Malignant melanoma 130278712 Active 2018 Not Available [facility] 3 08:09:44 History of Malignant melanoma 837155592 Active 2020 Not Available [facility] 3 08:09:44 Serum creatinin e above reference range 890580923 Active 2022 RAYA Bowen, [place] [facility] 3 09:23:38 Coronary atheroscl erosis 801447143 Active 2022 KIAN Wang [address] [place], [place] [address], [address], [place], [address] , [facility] 3 14:34:24 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 Procedures Surgical History Date Name Laterality Status Provider Name and Address Organization Details Recorded Time Breast Biopsy completed Not Available [facility] 11/04/2022 08:05:23 Hernia Repair completed Not Available [facility] 11/04/2022 08:05:23 Knee Replacement completed Not Available [facility] 11/04/2022 08:05:23 Cholecystectomy completed Not Available [facility] 11/04/2022 08:05:23 Imaging Results None recorded. Procedure Notes None recorded. Medical Equipment None Reported. Allergies Allergen ID Allergen Name Allergen Category Reaction Reaction Severity Criticality Documentation Date Start Date Code Code System Note Provider Name and Address Organization Details Recorded Time Fosamax medicatio n Not available Not available Not available 11/04/2022 82347 5 RxNorm Not Available [facility] 3 08:15:13 cortisone medicatio n Not available Not available Not available 11/04/2022 2878 RxNorm shots Not Available [facility] 3 08:15:14 Medications Name Sig Start Date Stop Date Status Note LastModified by Organization Details LastModified Time amoxicilli n 500 mg capsule DNC 10/03 completed Not Available Not Available Not Available clonidine HCl 0.1 mg tablet TAKE 1 TABLET TWICE DAILY 10/03 completed 0.2mg 1 po bid Not Available Not Available Not Available azithromyc in 250 mg tablet ZPK 02/04 completed Not Available Not Available Not Available hydrocodon e 5 mg-acetami nophen 325 mg tablet 05/31 completed Not Available Not Available Not Available amlodipine 5 mg tablet TK 1 T PO QD 06/01 completed Not Available Not Available Not Available tramadol 50 mg tablet TAKE 1 TABLET BY MOUTH EVERY 6 HOURS NEEDED FOR PAIN active Not Available Not Available No t Available triamteren e 37.5 mg-hydroch lorothiazi de 25 mg capsule TAKE 1 CAPSULE BY MOUTH TWICE A DAY 10/06 completed Not Available Not Available Not Available spironolac tone 25 mg tablet active Not Available Not Available Not Available amoxicilli n 500 mg tablet DNT 12/09 completed Not Available Not Available Not Available simvastati n 40 mg tablet TAKE 1 TABLET BY MOUTH EVERY DAY 10/06 completed Not Available Not Available Not Available meloxicam 7.5 mg tablet TAKE 1 TABLET BY MOUTH EVERY DAY 10/06 completed Not Available Not Available Not Available Tessalon Perles 100 mg capsule Take 1 capsule 3 times a day by oral route as needed for 15 days. 02/01 completed Not Available Not Available Not Available clonidine HCl 0.2 mg tablet Take 1 tablet 3 times a day by oral route for 30 days. 07/23 completed Not Available Not Available Not Available amlodipine 10 mg tablet active Not Available Not Available Not Available simvastati n 20 mg tablet TAKE 1 TABLET DAILY active Not Available Not Available No t Available clotrimazo le-betamet hasone 1 %-0.05 % topical cream APPLY TO THE AFFECTED AND SURROUND ING AREAS OF SKIN TWICE A DAY IN AM AND PM FOR 2 WEEKS active Not Available Not Available No t Available metoprolol tartrate 50 mg tablet TAKE 1 TABLET TWICE DAILY active Not Available Not Available No t Available SB Low Dose ASA EC 81 mg tablet,del ayed release Take 1 tablet every day by oral route. 2013 active Not Available Not Available Not Avai lable hydrochlor othiazide 25 mg tablet active Not Available Not Available Not Available mupirocin 2 % topical ointment APPLY TO BOTH NARES BID FOR 5 DAYS DIRECTED 12/09 completed Not Available Not Available Not Available nystatin 100,000 unit/gram topical powder APPLY TO THE AFFECTED AREA(S) BY TOPICAL ROUTE 2 TIMES PER DAY active Not Available Not Available No t Available Transderm- Scop 1 mg over 3 days transderma l patch Apply 1 patch every 72 hours by transder mal route. 12/09 completed Not Available Not Available Not Available polyethyle ne glycol 3350 17 gram/dose oral powder MIX AND DRINK UTD active Not Available Not Available No t Available methylpred nisolone 4 mg tablets in a dose pack TK UTD 02/04 completed Not Available Not Available Not Available lisinopril 40 mg tablet TAKE 1 TABLET BY MOUTH EVERY DAY active Not Available Not Available No t Available losartan 100 mg tablet 10/06 completed Not Available Not Available Not Available betamethas one dipropiona te 0.05 % lotion 10/03 completed Not Available Not Available Not Available diazepam 5 mg tablet TAKE 1 TABLET BY MOUTH THREE TIMES A DAY NEEDED FOR ANXIETY 10/06 completed Not Available Not Available Not Available neomycin 3.5 mg/g-polym yxin B 10,000 unit/g-dex ameth 0.1 % eye oint APPLY A SMALL AMOUNT TO EYELIDS TWICE A DAY NEEDED active Not Available Not Available No t Available Prilosec OTC 20 mg tablet,del ayed release Take 1 tablet as needed by oral route. 06/06 completed not taking current ly. Not Available Not Available Not Available metoprolol succinate 50mg and 25mg at night. 06/06 completed Not Available Not Available Not Available Fish Oil [place] 3-6-9 300 mg-1,000 mg capsule,de layed release Take 1 capsule twice a day by oral route. 12/09 completed Not Available Not Available Not Available Vitamin D3 50 mcg (2,000 unit) capsule Take 1 capsule every day by oral route. 2013 active Not Available Not Available Not Avai lable Fluad 65yr up(PF)45 mcg(15 mcgx3)/0.5 mL intramuscu lar syringe ADM 0.5ML IM UTD 10/03 completed Not Available Not Available Not Available Lotemax SM 0.38 % eye gel drops INSTILL 1 DROP IN BOTH EYES THREE TIMES DAILY 07/23 completed Not Available Not Available Not Available Fluzone High-Dose (PF) 180 mcg/0.5 mL intramuscu lar syringe ADM 0.5ML IM UTD 12/09 completed Not Available Not Available Not Available Vitals Date Recorded Body mass index (BMI) Body height Oxygen saturation Oxygen saturation in Arterial blood by Pulse oximetry Heart rate Body temperature Body weight Systolic And Diastolic Provider Name and Address Organization Details Last Updated DateTime 3 36.4 kg/m2 158.75 cm 100 % 100 % 98 /min 97.8 [degF] 24708.6 6 g 142/70 mm[Hg] Not Available [facility] 3 08:06:11 Date Recorded Body height Body mass index (BMI) Body weight Body temperature Heart rate Oxygen saturation Oxygen saturation in Arterial blood by Pulse oximetry Systolic And Diastolic Provider Name and Address Organization Details Last Updated DateTime 3 158.75 cm 36 kg/m2 75479.4 7 g 98 [degF] 96 /min 99 % 99 % 132/70 mm[Hg] Cori Key MA [facility] [employer] [facility] 3 11:56:56 Date Recorded Body mass index (BMI) Body height Oxygen saturation Oxygen saturation in Arterial blood by Pulse oximetry Heart rate Body temperature Body weight Systolic And Diastolic Provider Name and Address Organization Details Last Updated DateTime 2 35.3 kg/m2 158.75 cm 98 % 98 % 76 /min 97.3 [degF] 42191.1 g 168/90 mm[Hg] Not Available [facility] 3 08:06:11 Date Recorded Body height Body mass index (BMI) Body weight Body temperature Heart rate Oxygen saturation Oxygen saturation in Arterial blood by Pulse oximetry Systolic And Diastolic Provider Name and Address Organization Details Last Updated DateTime 3 158.75 cm 36 kg/m2 56961.4 7 g 97.4 [degF] 72 /min 100 % 100 % 134/76 mm[Hg] Cori Key MA [facility] [employer] [facility] 3 10:00:09 Date Recorded Body mass index (BMI) Body height Oxygen saturation Oxygen saturation in Arterial blood by Pulse oximetry Heart rate Body temperature Body weight Systolic And Diastolic Provider Name and Address Organization Details Last Updated DateTime 2 35.3 kg/m2 158.75 cm 98 % 98 % 78 /min 97.2 [degF] 34639.1 g 150/78 mm[Hg] Not Available [facility] 08:06:11 Social History Question Answer Notes LastModified by Organizat ion Details LastModified Time Tobacco Smoking Status Never Smoker Not Available [facility] 11/04/2022 08:04:55 What Is Your Level Of Caffeine Consumption? Moderate [id number] Information not available 11/04/2022 In The 14 Days Before Symptom Onset, Have You Had Close Contact With A Laboratory-confir med COVID-19 While That Case Was Ill? No [id number] Information not available 11/04/2022 In The 14 Days Before Symptom Onset, Have You Had Close Contact With A Person Who Is Under Investigation For COVID-19 While That Person Was Ill? No [id number].[id number] Information not available 11/04/2022 What Type Of Diet Are You Following? REGULAR [id number].38835 [id number] Information not available 11/04/2022 Have There Been Any Changes To Your Family Or Social Situation? No [id number] Information not available 11/04/2022 What Is The Fluoride Status Of Your Home? Unknown [id number].75360 [id number] Information not available 11/04/2022 Are There Any Guns Present In Your Home? Yes [id number] Information not available 11/04/2022 Do You Use Insect Repellent Routinely? No MIGRATION.87859 [id number] Information not available 11/04/2022 Where Do You Live? [place] MIGRATION.[id number] Information not available 11/04/2022 What Was The Date Of Your Most Recent Tobacco Screening? 06/29/2023 [email or web address] Information not available 06/29/2023 Do You Have Any Pets? No MIGRATION.76074 [id number] Information not available 11/04/2022 Do You Have Smoke And Carbon Monoxide Detectors In Your Home? Yes MIGRATION.27578 [id number] Information not available 11/04/2022 Are You Passively Exposed To Smoke? No MIGRATION.59289 63523 Information not available 11/04/2022 Are There Any Smokers In Your House? No MIGRATION.37793 58556 Information not available 11/04/2022 Do You Use Sunscreen Routinely? Yes MIGRATION.51498 [id number] Information not available 11/04/2022 Have You Recently Traveled Abroad? No MIGRATION.66647 74939 Information not available 11/04/2022 Do You Have Any Dietary Restrictions? No MIGRATION.18233 [id number] Information not available 11/04/2022 Sex: Unknown Functional Status Question Answer Note LastModified by Organizat ion Details LastModified Time Do you use any illicit or recreational drugs? No [id number] Information not available 11/04/2022 Do you or have you ever used any other forms of tobacco or nicotine? No [id number] 026 Information not available 11/04/2022 What is your level of alcohol consumption? Occasional [id number].[id number] 026 Information not available 11/04/2022 What is your occupation? retired [id number] 026 Information not available 11/04/2022 What is your exercise level? Occasional [id number].[id number] 026 Information not available 11/04/2022 Mental Status Question Answer Note LastModified by Organizat ion Details LastModified Time Do you feel stressed (tense, restless, nervous, or anxious, or unable to sleep at night)? [id number] Information not available 11/04/2022 Family History Relationship Description Onset Age of this Age Resolved Age Notes LastModified by Organization Details LastModified Time Father Heart disease [id number] Not available 11/04/2022 08:05:24 Father Arthritis [id number] Not available 11/04/2022 08:05:24 Mother Arthritis [id number] Not available 11/04/2022 08:05:24 Mother Hypertensive disorder [id number] Not available 11/04/2022 08:05:24 Medical History Condition Response HEART DISEASE/HEART PROBLEMS Y ARTHRITIS Y CANCER: SPECIFY HYPERTENSION Y HIGH CHOLESTEROL / HYPERLIPIDEMIA Y Gynecological HistoryNo gynecological history recorded. Obstetrics History GPAL:G 0 P 0 0 0 0 Immunizations Vaccine Type Date Status Note Provider Nam e and Address Organization Details Recorded Time Influenza, high-dose, trivalent, PF 9 completed Not Available [facility] 11/04/2022 08:14:49 COVID-19, mRNA, LNP-S, PF, 100 mcg/0.5mL dose or 50 mcg/0.25mL dose 1 completed Not Available [facility] 11/04/2022 08:14:50 COVID-19, mRNA, LNP-S, PF, 100 mcg/0.5mL dose or 50 mcg/0.25mL dose 1 completed Not Available [facility] 11/04/2022 08:14:50 Pneumococcal conjugate PCV 13 9 completed Not Available [facility] 11/04/2022 08:14:50 pneumococcal conjugate PCV 7 0 completed Not Available [facility] 11/04/2022 08:14:50 Influenza, high-dose, trivalent, PF 8 completed Not Available [facility] 11/04/2022 08:14:50 Influenza, high-dose, trivalent, PF 5 completed Not Available [facility] 11/04/2022 08:14:51 Influenza, split virus, trivalent, preservative 4 completed Not Available [facility] 11/04/2022 08:14:51 Past Encounters Encounter ID Performer Location Encounter Start Date Encounter Closed Date Diagnosis/Indication Diagnosis SNOMED-CT Code Diagnosis ICD10 Code Diagnosis IMO Codes Diagnosis Note [id number] [facility] [place] [facility] [place] [address] 12/09/2020 00:00:00 12/09/2020 13:08:05 [id number] Emeli Mcarthur MD [facility] [place] [address] [place] [address] 12/25/2021 00:00:00 12/25/2021 09:29:54 [id number] [facility] [place] [address] [place] [address] 05/07/2022 00:00:00 05/07/2022 10:05:43 [id number] Emeli Mcarthur MD [facility] [place] [address] [place] [address] 07/23/2022 00:00:00 07/23/2022 10:25:33 [id number] Addison read MD [facility] Internal Med [address] [facility] [place] [address] 10/06/2022 00:00:00 10/06/2022 15:21:26 [id number] Addison read MD [facility] Internal Med [address] [facility] [address] [place] [address] 03/02/2023 11:46:41 03/02/2023 12:14:39 Hyperlipidemia 17322577 E78.5 On simvastati n Essential hypertension 51219653 I10 managed by cardiology - Dr. Pulido Coronary atherosclerosis 347152608 I25.10 follows cardiology as aboveon ASA Vitamin D deficiency 347 28008 E55.9 on supplement Osteoarthritis 427177337 M19.90 Advise patient I did not fill tramadol out of this officeOffe red pain management referral-s he declines at this timeCall us if she changes her mind on the referral Renewal of prescription 638588212 Z76.0 Screening mammography 24 734020 Z12.31 Urinary incontinence 165 273486 R32 We discussed options including pelvic floor physical therapy and referral to the urologist At this time she does not feel like this is really bothersome to her and she does not want to pursue any treatment Call us if she changes her mind and desires referral [id number] Addison read MD [facility] Internal Med [address] [facility], [facility] [address] [place] [address] 06/29/2023 09:51:07 06/29/2023 10:17:08 Hyperlipidemia 66983353 E78.5 On simvastati n Essential hypertension 82342219 I10 managed by cardiology - Dr. Pulido Coronary atherosclerosis 230230270 I25.10 follows cardiology as aboveon ASA Vitamin D deficiency 347 53367 E55.9 on supplement Osteoarthritis 075790641 M19.90 Advise patient I did not fill tramadol out of this officeOffe red pain management referral-s he declines at this timeCall us if she changes her mind on the referral Renewal of prescription 329160871 Z76.0 Urinary incontinence 165 725466 R32 We discussed options including pelvic floor physical therapy and referral to the urologistA t this time she wants to wait until after the holidaysCa ll us if she changes her mind and desires referral- we had talked about her seeing urogyn- Dr. Cristino Aguila Health Concerns Section Related Observation LastModified by Organization Detai ls LastModified Time None Recorded Concern Status LastModified by Organization Details LastModified Time None Recorded Advance Directives Directive None Recorded Payers Insurance Date Sequence Insurance Name Policy Number Policy Amaya Covered Member ID Amaya Member ID Guarantor Name 10/10/2023 1 [employer] (MEDICARE REPLACEMENT/ ADVANTAGE - PPO) [id number] Lizett Wood [id number] Lizett Wood Notes Date Note Type Note Provider Name and Address Organization Details Recorded Time 03/02/2023 text/html Lizett presents today for follow-up. She reports that she had a couple of episodes of lower blood pressure at home that she noted on her automatic cuff. However she was asymptomatic with this. She has normal blood pressures today. She reports she has been having some issues with incontinence. Sometimes she has overflow incontinence sometimes she has stress incontinence. She would like a refill on some eye ointment that she uses p.r.n. when she gets some eye irritation due to allergies. She denies any current issues with her eyes. She recently had her labs done. She is due for mammogram. Liberty Evans, EKG/ECG TECHNICIAN-C [address] [place] [address], [place] [address], [place], [address], [place] [facility] 03/02/2023 13:10:29 06/29/2023 text/html Lizett presents today for follow-up. She reports her blood pressures been well controlled at home. She reports she just saw Dr. Pulido last week and he was happy with how she was doing. She does have lab orders from him. She continues to have issues with urinary incontinence. We had previously talked about various options, including pelvic floor physical therapy versus seeing Urology in seeing if she is a candidate for procedure. Right now she is trying to work on weight loss as she knows that will help. She tells me she is not interested in any referrals at this time, she has a few trips planned this fall and with the holiday she would like to get through all that. She tells me she will call me when she is ready for urologist referral. We talked today about having her see Uro police officer- Dr. Cristino Aguila. She has already had her flu shot. Liberty Evans, EKG/ECG TECHNICIAN-C [address] [place] [address], [place] [address], [place], [address], [place] [facility] 06/29/2023 11:00:08 OBGyn Episode No OBEpisode recorded.
== END 2025-07-13 09:59 | disposition home or self-care (01) ==
LOC: ANHFOHIMG 10:01
PROVIDERS: PCP Family Medicine; Visit Provider Family Medicine
DX: Z12.31 Encounter for screening mammogram for malignant neoplasm of breast (principal)
CPT/HCPCS: 77063; 77067